=== PATIENT | female | born 1940 | race Caucasian/White ===

== ENCOUNTER 2016-09-12 15:01 | Inpatient (IN) | payer MEDICARE, OTHER ==
--- NOTE | ~2016-09-12 | DS ---
Discharge Summary [facility] [address] [place]. [address] NAME: PRISCILLA CLARK : 39 STATUS : DIS IN PAT#: [id number] AGE: 76 ADM/REG DATE : 09/12/16 MR#: [id number] REPORT SERV DATE: 09/29/16 DICTATED BY: ROZINA CARRILLO DATE: 09/26/16 REPORT STATUS : Draft TRANSCRIBED BY: CHARLIE DATE: 09/26/16 Data Collection from hospitalization DISCHARGE DIAGNOSES: 1. Right acetabular periprosthetic fracture with severe protrusio with severe osteoporosis. 2. Migraines. 3. Cataracts. 4. Astigmatism. 5. Dysrhythmia. 6. Chronic obstructive pulmonary disease. 7. Asthma. 8. Rheumatoid arthritis. 9. Osteoarthritis. 10.Hypothyroidism. 11.Anemia. CONSULTATION: Karyn Yeager NP PROCEDURES: 1. Right acetabular revision/pelvic reconstruction, 09/12/2016. 2. Myocardial perfusion imaging study, 09/16/2016. PATHOLOGY: Bone and tissue, right hip and hardware-organizing hematoma with areas of devitalized bone and areas of reactive new bone formation (history of fracture), dense fibrous connective tissue with granulation tissue, vascular ingrowth fragments of fibroadipose tissue and skeletal muscle present. Orthopedic hardware-see gross description. DISCHARGE MEDICATIONS: ( ) ( ) CONDITION ON DISCHARGE: Stable. DISPOSITION: The patient was discharged to [facility] with diet and activities as instructed. She would follow up with ok, 09/23/2016. HOSPITAL COURSE: This is a 76-year-old female, who has been seen in the clinic for followup status post right uncemented total hip arthroplasty, 08/27/2016. The patient said her pain was a 10 on a scale of 0-10. The patient has severe osteoporosis and had had lumbar fracture subluxation and sacral fracture with failed total ORIF of previous humerus fracture, etc. She had undergone an uncomplicated total hip and was initially doing well. She went to rehab and was determined to be having problems with this, where she suddenly had shortening of her leg. She was brought in for evaluation of multiple complaints and it was determined that she had severe protrusio with a central comminuted fracture and pelvic dissociation. Treatment options were discussed and it was elected to proceed with surgical intervention. She was admitted to the hospital at this time for further evaluation and treatment. Discharge Summary [place] [id number] [facility] [address] NAME: PRISCILLA CLARK : 39 STATUS : DIS IN PAT#: [id number] AGE: 76 ADM/REG DATE : 09/12/16 MR#: [id number] REPORT SERV DATE: 09/29/16 DICTATED BY: ROZINA CARRILLO DATE: 09/26/16 REPORT STATUS : Draft TRANSCRIBED BY: CHARLIE DATE: 09/26/16 Upon admission, she was taken to the operating room, where she underwent the above-mentioned procedure. She tolerated this well and there were no complications. On postop day #1, she was evaluated by Occupational and Physical Therapy. She was up sitting in a bedside chair. She said her hip felt more stable than prior to surgery. REGAN hose were in place. Electrolyte replacement protocol was started. Methotrexate and prednisone were continued as well as atenolol and hydrochlorothiazide. She remained on Synthroid and Asmanex inhaler. On 09/14/2016, she complained of having straight catheterization attempted several times before success. She did complain of the left foot to mid calf numbness, anterior and posterior, left lower extremity. Her REGAN hose remained in place. She denied any shortness of breath or wheezing. She was seen by Karyn Yeager on the 09/15/2016. She began experiencing chest pain with the insertion of a Pierre catheter. This pain was associated with anxiety and some shortness of breath and was relieved with Percocet and Benadryl. She reports feeling pain in the upper right shoulder as well as in her epigastric area. The pain resolved after administration of medication and after completion of Pierre catheter insertion. She does not have any cardiac history other than "leaky valve." She does regularly follow up with Cardiology. Chest x-ray showed no acute process. It was felt that the chest pain was possible anxiety versus atypical chest pain. Troponin was negative. EKG was unremarkable. At this time, we planned to trend troponins and repeat EKG the following morning. Nitroglycerin would be added as needed. Her last bowel movement was greater than two days ago. We were going to increase her bowel regimen. We would encourage fluids and encourage physical activity with physical therapy. The patient has COPD, but is not on home O2. We were going to encourage aggressive pulmonary toilet and provide supportive O2 to maintain saturations greater than or equal to 92. She states she wanted to go home. Her EKG was negative. IV fluids were stopped. Ensure was being provided. On 09/16/2016, she denied any further chest pain. A stress test was performed and showed no ischemia. Left ventricular ejection fraction was 60%. She had no edema. White count was 11.9. Blood pressure remained stable. Over the next couple of days, she continued to do well. Discharge planning was performed. We encouraged her to mobilize with Physical Therapy. Leukocytosis resolved. Her atypical chest pain had resolved as well. 09/18/2016, she continued to do well. White blood cell count was normal. She did have some constipation. Dulcolax suppository and soapsuds enema were given. Discharge instructions were provided. Due to her improved and stable condition, she was discharged to [facility] with the above-stated instructions. Information collected by: Licha Choi I submit the above information as my discharge summary. TG/CHARLIE Indira Carrillo M.D. / [id number] CC: Indira Carrillo M.D. Discharge Summary [address] [address] NAME: PRISCILLA CLARK : 39 STATUS : DIS IN PAT#: [id number] AGE: 76 ADM/REG DATE : 09/12/16 MR#: [id number] REPORT SERV DATE: 09/29/16 DICTATED BY: ROZINA CARRILLO DATE: 09/26/16 REPORT STATUS : Draft TRANSCRIBED BY: MODL DATE: 09/26/16 JUAN AG [facility]
--- NOTE | ~2016-09-12 | CN ---
Consultation Report [facility] [address] [place]. [address] NAME: PRISCILLA CLARK : 39 STATUS : ADM IN [facility]#: [id number] AGE: 76 ADM/REG DATE : 09/12/16 MR#: [id number] REPORT SERV DATE: 09/15/16 DICTATED BY: KARYN YEAGER DATE: 09/15/16 REPORT STATUS : Draft TRANSCRIBED BY: MODL DATE: 09/15/16 HOSPITALIST CONSULTATION DATE OF CONSULTATION: 09/15/2016 REASON FOR CONSULTATION: Chest pain per Dr. Shaw. HISTORY OF PRESENT ILLNESS: This is an awake, alert and oriented, pleasant, 76-year-old female, who was admitted to Dr. Shaw on 09/12/2016 for revision of a right hip arthroplasty that was completed on 09/12/2016. She began experiencing chest pain with the insertion of a Pierre catheter. This pain was associated with anxiety and some shortness of breath and relieved with Percocet and Benadryl. She is currently not experiencing any chest pain, nausea, vomiting, palpitations, dyspnea, shortness of breath, headaches, vision disturbances. She has never had any chest pain of this type before. She reports feeling pain in her upper right shoulder as well as in her epigastric area. Again, this pain was resolved after the administration of medication and after the completion of Pierre insertion. She does not have any cardiac history other than "leaky valves." She does regularly follow with cardiology. PAST MEDICAL HISTORY: Significant for 1. Migraines. 2. Cataracts. 3. Astigmatism. 4. Dysrhythmias. 5. COPD. 6. Asthma. 7. Rheumatoid arthritis. 8. Osteoarthritis. 9. Hypothyroidism. 10.Anemia. PAST SURGICAL HISTORY: Significant for 1. Right hip arthroplasty, 08/27/2016. Revision of right hip arthroplasty, 09/12/2016. 2. Bilateral cataract intra-ocular lens implant, 2016. 3. Tonsillectomy as a child. 4. Appendectomy, age 20. 5. ACL repair. 6. Ankle fracture "several years ago.". 7. Right Achilles tendon repair. 8. Left arm fracture with plates. PCP: Gopal Moreira in [place], [place]. RESEARCH ADMINISTRATOR: Dr. Jeffrey Higginbotham at [facility] in [place] with last appointment 2 weeks ago. Consultation Report [facility] [address] [place]. [address] NAME: PRISCILLA CLARK : 39 STATUS : ADM IN PAT#: [id number] AGE: 76 ADM/REG DATE : 09/12/16 MR#: [id number] REPORT SERV DATE: 09/15/16 DICTATED BY: KARYN YEAGER DATE: 09/15/16 REPORT STATUS : Draft TRANSCRIBED BY: CHARLIE DATE: 09/15/16 HORTICULTURAL SERVICES SUPERVISOR: Dr. Chavez in [place]. THEOLOGY TEACHER: Dr. Bertram Cuevas. He follows for her rheumatoid arthritis. 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 She is a never smoker and denies alcohol and illicit drug use. She has three adult daughters and one adult son as well as 9 grand children. FAMILY HISTORY: Mother has history of hypertension and father has history of diabetes. ALLERGIES: INCLUDE PENICILLINS, CECLOR, ERYTHROMYCIN, SULFA, AND TRIMETHOPRIM. HOME MEDICATIONS: 1. Milk of magnesia 30 mL p.o. daily p.r.n. constipation. 2. Maalox 30 mL p.o. q.3 hours p.r.n. indigestion. 3. Dulcolax 10 mg suppository 1 p.r. daily p.r.n. constipation. 4. Kaopectate 15 to 30 mL p.o. q.4 hours p.r.n. indigestion. 5. Zofran 4 mg p.o. q.4 hours p.r.n. nausea and vomiting. 6. Lactulose 10 g per 15 mL solution 30 mL p.o. daily p.r.n. constipation. 7. MiraLax 1 packet p.o. daily p.r.n. constipation. 8. Phenergan 12.5 to 25 mg p.r. suppository q.6 hours p.r.n. nausea, vomiting. 9. Harrold 7.5/325 one tab p.o. q.4 hours p.r.n. pain. 10.Methotrexate 20 mg p.o. q.7 days on Thursday. 11.Pepcid 20 mg p.o. daily. 12.Vitamin B12 25 mcg sublingual daily. 13.Ferrous sulfate 325 mg p.o. b.i.d. with meals. 14.Vitamin D 2000 units p.o. daily. 15.Tylenol 325 mg 1-2 tabs p.o. q.6 hours p.r.n. pain. 16.Multivitamin one tab p.o. daily. 17.Prednisone 5 mg p.o. daily. 18.Asmanex Twisthaler 220 two puffs inhaled b.i.d. 19.Nystatin 100,000 units/mL oral suspension, 5 mL p.o. 4 times daily. 20.Levothyroxine 75 mcg p.o. q.a.m. 21.Hydrochlorothiazide 12.5 mg p.o. daily. 22.Gabapentin 100 mg 1 p.o. at bedtime. 23.Guaifenesin DM 5-10 mL p.o. q.4 hours p.r.n. cough. 24.Coumadin 2 mg p.o. daily at 1800 hours. 25.Fluticasone 2 sprays each nostril b.i.d. 26.Claritin 10 mg p.o. daily. 27.Atenolol 50 mg p.o. daily. REVIEW OF SYSTEMS: A complete 10-point review of systems was negative except as per HPI. Consultation Report [address] [place]. [address] NAME: PRISCILLA CLARK : 39 STATUS : ADM IN [facility]#: [id number] AGE: 76 ADM/REG DATE : 09/12/16 MR#: [id number] REPORT SERV DATE: 09/15/16 DICTATED BY: KARYN YEAGER DATE: 09/15/16 REPORT STATUS : Draft TRANSCRIBED BY: CHARLIE DATE: 09/15/16 PHYSICAL EXAMINATION: VITAL SIGNS: T 97.3, P 85, R 20, BP 129/81, SpO2 96% on 2 L nasal cannula. GENERAL: Well-appearing female, in no acute distress. NEUROLOGIC: Awake, alert, oriented x3 without focal deficit. HEENT: Normocephalic, atraumatic without lymphadenopathy. NECK: Supple. No JVD. LUNGS: CTA in all lung soliz with normal respiratory effort. CV: Regular rate and rhythm. S1, S2 auscultated without murmur, rub, gallop or click. ABDOMEN: Soft, round, nontender with hypoactive bowel sounds in all quadrants. No masses. EXTREMITIES: No cyanosis. Cap refill within normal limits. Generalized edema in bilateral lower extremities. PSYCH: Anxious affect. SKIN: Clean, dry, and intact with mucous membranes pink and moist. PERTINENT LABS: Troponin was negative at 0.02, drawn at the time of complaint of chest pain. H and H 11.7 and 34.7. Electrolytes all within normal limits. Glucose 109. PERTINENT IMAGING: Chest x-ray on 09/12/2016 per radiology read shows no acute process. Heart normal in size and shape. EKG shows sinus rhythm with PVCs with rate 91. ASSESSMENT AND PLAN: 1. Chest pain. Possible anxiety versus atypical chest pain. Vital signs are currently stable with a negative troponin and EKG unremarkable. At this time, we will plan to trend troponins and repeat EKG in a.m. We will add p.r.n. nitro. Consult Cardiology if clinically warranted. We will also monitor her labs in adding BMP, CBC, and mag to a.m. labs. 2. Constipation. Of note her last bowel movement was greater than 2 days ago. We will increase her bowel regimen. Encourage fluids and encourage physical activity with PT as appropriate with Primary Team. 3. Chronic obstructive pulmonary disease. This is chronic though she is not on home O2. We will encourage aggressive pulmonary toilet and provide supportive O2 to maintain sats greater than or equal to 92. 4. Right hip revision. This is acute and we will defer management of this to the primary team. Thank you for this consult. We are pleased to follow this patient with you. This consult was completed through thorough review of [employer], old records, [facility], and current chart and thorough interview with the patient. [facility]/MODL Karyn Yeager NP Consultation Report [facility] [address] [place]. [address] NAME: PRISCILLA CLARK : 39 STATUS : ADM IN [facility]#: [id number] AGE: 76 ADM/REG DATE : 09/12/16 MR#: [id number] REPORT SERV DATE: 09/15/16 DICTATED BY: KARYN YEAGER DATE: 09/15/16 REPORT STATUS : Draft TRANSCRIBED BY: CHARLIE DATE: 09/15/16 / [id number] CC: Phoebe Banks
--- NOTE | ~2016-09-12 | OP ---
Record Of Operation [facility] [address] [place]. [address] NAME: PRISCILLA CLARK : 39 STATUS : ADM IN PAT#: [id number] AGE: 76 ADM/REG DATE : 09/12/16 MR#: [id number] REPORT SERV DATE: 09/16/16 DICTATED BY: ROZINA SHAW DATE: 09/16/16 REPORT STATUS : Draft TRANSCRIBED BY: CHARLIE DATE: 09/16/16 DATE OF PROCEDURE: 09/12/2016 PREOPERATIVE DIAGNOSIS: Right acetabular periprosthetic fracture with severe protrusio with severe osteoporosis. POSTOPERATIVE DIAGNOSIS: Right acetabular periprosthetic fracture with severe protrusio with severe osteoporosis. PROCEDURE: Right acetabular revision/pelvic reconstructions. CNC APPLICATIONS ENGINEER: See chart. INDICATIONS: A 76-year-old female with severe osteoporosis, who has had lumbar fracture subluxation, sacral fracture, failed ORIF of previous humerus fracture, etc., underwent an uncomplicated total hip, was initially doing well, went to rehab, and was determined to be having problems with this where she suddenly had shortening of her leg. She was brought in for evaluation of multiple complaints and determined to have severe protrusio with a central comminuted fracture and pelvic dissociation. She was indicated for pelvic reconstruction and acetabular revision ORIF. DESCRIPTION OF PROCEDURE: The patient was taken to the operating room and placed supine on the table in normal fashion without incident. General anesthetic was induced per the anesthesiologist. The patient was carefully positioned, padded, prepped, and draped in normal sterile fashion. Sharp dissection was made through the old incision with electrocautery through the fat. IT band was split in line with its fibers. Charnley retractors placed over moist laps. Anterior lateral approach to the hip was carried out lifting the anterior gluteus medius and minimus fibers off the anterior capsule. The acetabular component was severely protruded up into the acetabulum. The femoral head was gently dislocated and removed from the trunnion, went up the femoral component which appeared to be completely intact. Soft tissue dissection was very carefully done in freeing up the acetabular component, which was then gently removed through the acetabular fossa back up from an anterior pelvic location back out. There was no appreciable significant bleeding associated with this portion. There was complete dissociation of the pubis and ischium and the ileum was broken into 2 fragments longitudinally in an anterior and a posterior fragment. After using reamers and packing, a large fragment corticocancellous allograft into the deep aspect, which appeared to be maintained by a pseudo type capsule. I fitted a large multi hole cup. This required augmentation with a posterior column augment from the DePuy set. The multi hole socket was placed and held with multiple screws were placed. The augment was then placed similarly and held with multiple screws and a small bead of cement used to join this augment to the posterior superior aspect of the acetabular component. This appeared to have excellent fixation. After doing a trial of reduction superior to recreate the leg length well and so the actual insert was then placed, impacted into the new socket, ball placed in the trunnion, hip relocated, and then irrigated closed in a layered fashion and dressed sterilely. Patient awakened and taken to postanesthesia care unit without incident. Record Of Operation [address] [place]. [address] NAME: PRISCILLA CLARK : 39 STATUS : ADM IN PAT#: [id number] AGE: 76 ADM/REG DATE : 09/12/16 MR#: [id number] REPORT SERV DATE: 09/16/16 DICTATED BY: ROZINA SHAW DATE: 09/16/16 REPORT STATUS : Draft TRANSCRIBED BY: CHARLIE DATE: 09/16/16 COMPLICATIONS: None. SPECIMENS: Removed components. ESTIMATED BLOOD LOSS: About 300 mL. WTB/CHARLIE Indira Shaw M.D. / [id number] CC: Indira Shaw M.D.
[~2016-09-12 15:01] MED LIST: 8 HOUR650 MG PO; ASMANEX100 INH; ATEN50 PO; CLARIT10 PO; CYANO1000T PO; FLONASE NAS; FOLIC PO; HCTZ12.5 PO; MTX2.5 PO; P5 PO; SLO IRON PO; SYN.025B PO; VITAMIN D31000 UNIT PO
[2016-09-12] MEDS ORDERED: VITAMIN D2000 UNIT PO (17:57)
[2016-09-12] MEDS ORDERED: VITAMIN B-122500 MCG SL (17:57)
[2016-09-12] MEDS ORDERED: ATEN50 PO (17:57)
[2016-09-12] MEDS ORDERED: PEP20 PO (17:58)
[2016-09-12] MEDS ORDERED: FERROUS SULF325 M1 PO (17:58)
[2016-09-12] MEDS ORDERED: FLONASE NAS (17:58)
[2016-09-12] MEDS ORDERED: GLYCERIN SUPPOSITORY PR (17:59)
[2016-09-12] MEDS ORDERED: FOLIC PO (17:59)
[2016-09-12] MEDS ORDERED: HYDROCHLOROT25 MG PO (18:00)
[2016-09-12] MEDS ORDERED: LEVOTHYROXIN75 MCG PO (18:00)
[2016-09-12] MEDS ORDERED: CENTRUM PO (18:00)
[2016-09-12] MEDS ORDERED: ASMANEX INH (18:00)
[2016-09-12] MEDS ORDERED: NYS500UDL PO (18:01)
[2016-09-12] MEDS ORDERED: P5 PO (18:01)
[2016-09-12] MEDS ORDERED: C2 PO (18:02)
[2016-09-12] MEDS ORDERED: T PO (18:04)
[2016-09-12] MEDS ORDERED: MAALOX PO (18:05)
[2016-09-12] MEDS ORDERED: BISR PR (18:05)
[2016-09-12] MEDS ORDERED: KAOPECTATE262 MG/15 PO (18:06)
[2016-09-12] MEDS ORDERED: GGDM5ML PO (18:06)
[2016-09-12] MEDS ORDERED: NORCO1 TA2 PO (18:07)
[2016-09-12] MEDS ORDERED: CONSTULOSE PO (18:07)
[2016-09-12] MEDS ORDERED: CLARIT10 PO (18:07)
[2016-09-12] MEDS ORDERED: ZOFRAN ODT4 MG PO (18:08)
[2016-09-12] MEDS ORDERED: MOMUD PO (18:08)
[2016-09-12] MEDS ORDERED: MIRALAX POWDER1 PKT PO (18:08)
[2016-09-12] MEDS ORDERED: PR25R PR (18:10)
[2016-09-12 18:21] LABS: BASOPHILS 0.4 %; BASOPHILS ABSOLUTE 0.04 10/3/uL (0.0-0.16); EOSINOPHILS 0.4 %; EOSINOPHILS ABSOLUTE 0.04 10/3/uL (0.0-0.53); HEMOGLOBIN 9.9 g/dL (12.0-16.0); IMMATURE GRANULOCYTES 0.7 %; IMMATURE GRANULOCYTES ABSOLUTE 0.08 10/3/uL (0.0-0.11); LYMPHOCYTES 16.5 %; LYMPHOCYTES ABSOLUTE 1.81 10/3/uL (0.67-4.30); MEAN PLATELET VOLUME 8.3 fL (9.2-13.0); MONOCYTES 14.7 %; MONOCYTES ABSOLUTE 1.61 10/3/uL (0.21-1.20); NEUTROPHILS 67.3 %; NEUTROPHILS ABSOLUTE 7.36 10/3/uL (2.02-8.40); RBC DISTRIBUTION WIDTH 15.9 % (12.0-16.0); RED CELL COUNT 3.41 10/6/uL (4.0-5.6); WHITE BLOOD CELLS 10.9 10/3/uL (4.5-10.5)
[2016-09-12 18:23] LABS: HEMATOCRIT 30.9 % (36.0-48.0); MEAN CORPUSCULAR VOLUME 90.6 fL (80-100)
[2016-09-12 18:24] LABS: MANUAL DIFF NO %
[2016-09-12 18:29] LABS: INTERNATIONAL NORMAL RATI 2.1 UNITS (-); PROTIME (NOT ORD) 23.4 SEC (12.0-14.5)
[2016-09-12] MEDS ORDERED: TREXALL10 MG PO (18:37)
[2016-09-12 18:39] LABS: RBC MORPHOLOGY NORM (NORMAL)
[2016-09-12 18:40] LABS: A/G RATIO 0.7 (0.7-1.9); ALBUMIN 2.6 G/DL (3.5-5.0); ALKALINE PHOSPHATASE 273 U/L (45-117); BUN (BLOOD UREA NITROGEN) 44 MG/DL (6-23); CALCIUM, SERUM 8.6 MG/DL (8.5-10.4); CHLORIDE, SERUM 89 MMOL/L (96-112); CO2 (CARBON DIOXIDE) 32 MMOL/L (24-34); CREATININE 1.02 MG/DL (0.55-1.02); GFR AFRICAN AMERICAN 61 ML/MIN (>=60); GFR NON AFRICAN AMERICAN 53 ML/MIN (>=60); GLOBULIN 3.9 G/DL (2.5-4.1); GLUCOSE, SERUM 130 MG/DL (60-99); POTASSIUM, SERUM 3.5 MMOL/L (3.5-5.3); SGOT(AST) 22 U/L (5-40); SGPT(ALT) 19 U/L (5-65); SODIUM, SERUM 134 MMOL/L (135-148); TOTAL BILIRUBIN 0.5 MG/DL (0-1.2); TOTAL PROTEIN 6.5 G/DL (6.0-8.5)
[2016-09-12 18:42] LABS: PLATELET COUNT 967 10/3/uL (150-400)
[2016-09-13 08:55] LABS: HEMATOCRIT 31.7 % (36.0-48.0); HEMOGLOBIN 10.8 g/dL (12.0-16.0)
[2016-09-13 09:03] LABS: INTERNATIONAL NORMAL RATI 2.4 UNITS (-); PROTIME (NOT ORD) 26.1 SEC (12.0-14.5)
[2016-09-13 09:17] LABS: BUN (BLOOD UREA NITROGEN) 34 MG/DL (6-23); CALCIUM, SERUM 7.8 MG/DL (8.5-10.4); CHLORIDE, SERUM 97 MMOL/L (96-112); CO2 (CARBON DIOXIDE) 28 MMOL/L (24-34); GFR AFRICAN AMERICAN 82 ML/MIN (>=60); GFR NON AFRICAN AMERICAN 71 ML/MIN (>=60); GLUCOSE, SERUM 119 MG/DL (60-99); POTASSIUM, SERUM 3.1 MMOL/L (3.5-5.3); SODIUM, SERUM 135 MMOL/L (135-148)
[2016-09-14 07:44] LABS: HEMATOCRIT 30.7 % (36.0-48.0); HEMOGLOBIN 10.1 g/dL (12.0-16.0)
[2016-09-14 07:49] LABS: INTERNATIONAL NORMAL RATI 3.3 UNITS (-); PROTIME (NOT ORD) 33.4 SEC (12.0-14.5)
[2016-09-14 07:55] LABS: BUN (BLOOD UREA NITROGEN) 19 MG/DL (6-23); CALCIUM, SERUM 8.6 MG/DL (8.5-10.4); CHLORIDE, SERUM 98 MMOL/L (96-112); CO2 (CARBON DIOXIDE) 29 MMOL/L (24-34); CREATININE 0.68 MG/DL (0.55-1.02); GFR AFRICAN AMERICAN 98 ML/MIN (>=60); GFR NON AFRICAN AMERICAN 84 ML/MIN (>=60); GLUCOSE, SERUM 98 MG/DL (60-99); POTASSIUM, SERUM 3.4 MMOL/L (3.5-5.3); SODIUM, SERUM 138 MMOL/L (135-148)
[2016-09-15 01:36] LABS: HEMOGLOBIN 11.7 g/dL (12.0-16.0)
[2016-09-15 01:38] LABS: HEMATOCRIT 34.7 % (36.0-48.0)
[2016-09-15 01:42] LABS: INTERNATIONAL NORMAL RATI 3.4 UNITS (-)
[2016-09-15 01:53] LABS: BUN (BLOOD UREA NITROGEN) 18 MG/DL (6-23); CHLORIDE, SERUM 99 MMOL/L (96-112); CO2 (CARBON DIOXIDE) 29 MMOL/L (24-34); CREATININE 0.71 MG/DL (0.55-1.02); GFR AFRICAN AMERICAN 95 ML/MIN (>=60); GFR NON AFRICAN AMERICAN 82 ML/MIN (>=60); GLUCOSE, SERUM 109 MG/DL (60-99); POTASSIUM, SERUM 3.1 MMOL/L (3.5-5.3); SODIUM, SERUM 140 MMOL/L (135-148); TROPONIN I 0.02 NG/ML (<0.05)
[2016-09-15 06:52] LABS: HEMATOCRIT 32.5 % (36.0-48.0); HEMOGLOBIN 10.8 g/dL (12.0-16.0); MEAN CORPUS HGB CONC 33.2 g/dL (32.0-36.0); MEAN CORPUSCULAR HEMOGLOB 29.8 pg (26.0-34.0); MEAN CORPUSCULAR VOLUME 89.8 fL (80-100); MEAN PLATELET VOLUME 8.3 fL (9.2-13.0); RBC DISTRIBUTION WIDTH 15.8 % (12.0-16.0); RED CELL COUNT 3.62 10/6/uL (4.0-5.6)
[2016-09-15 06:55] LABS: MANUAL DIFF YES %; PLATELET COUNT 217 10/3/uL (150-400); WHITE BLOOD CELLS 15.8 10/3/uL (4.5-10.5)
[2016-09-15 07:10] LABS: CHLORIDE, SERUM 99 MMOL/L (96-112); CO2 (CARBON DIOXIDE) 29 MMOL/L (24-34); CREATININE 0.93 MG/DL (0.55-1.02); GFR AFRICAN AMERICAN 69 ML/MIN (>=60); GFR NON AFRICAN AMERICAN 59 ML/MIN (>=60); SODIUM, SERUM 138 MMOL/L (135-148)
[2016-09-15 07:13] LABS: BAND NEUTROPHILS 26 %; IMMATURE GRANS ABSOLUTE (CALC) 0.16 10/3/uL (0.0-0.11); LYMPHOCYTES 3 %; LYMPHOCYTES ABSOLUTE (CALC) 0.47 10/3/uL (0.67-4.30); METAMYELOCYTES 1 %; NEUTROPHILS ABSOLUTE (CALC) 15.17 10/3/uL (2.02-8.40); PLATELET ESTIMATE ADQ (ADEQUATE); SEGMENTED NEUTROPHIL (0) 70 %; TOTAL NUCLEATED CELLS 100; TOXIC GRANULATION 2+; VACUOLATED NEUTROPHILES OCC
[2016-09-15 07:14] LABS: BUN (BLOOD UREA NITROGEN) 22 MG/DL (6-23); GLUCOSE, SERUM 82 MG/DL (60-99)
[2016-09-15 07:15] LABS: TROPONIN I 0.06 NG/ML (<0.05)
[2016-09-15 07:16] LABS: POLYCHROMASIA 1+ (2-5/OIF) (0-1/OIF)
[2016-09-15 13:25] LABS: TROPONIN I 0.02 NG/ML (<0.05)
[2016-09-15 14:25] LABS: ASCORBIC ACID (UR NOT ORDER) NEG (NEG); BILIRUBIN, URINE NEGATIVE (NEG); KETONE, URINE NEGATIVE (NEG); WBC (NOT ORDERED) (RFLEX) 19 (0-5)
[2016-09-15 14:26] LABS: LEUKOCYTE ESTERASE(NOT OR TRACE (NEG)
[2016-09-16 07:05] LABS: BASOPHILS 0.1 %; BASOPHILS ABSOLUTE 0.01 10/3/uL (0.0-0.16); EOSINOPHILS 1.9 %; EOSINOPHILS ABSOLUTE 0.23 10/3/uL (0.0-0.53); HEMATOCRIT 29.3 % (36.0-48.0); HEMOGLOBIN 9.6 g/dL (12.0-16.0); IMMATURE GRANULOCYTES 0.4 %; IMMATURE GRANULOCYTES ABSOLUTE 0.05 10/3/uL (0.0-0.11); LYMPHOCYTES 15.1 %; MEAN CORPUS HGB CONC 32.8 g/dL (32.0-36.0); MEAN CORPUSCULAR HEMOGLOB 29.5 pg (26.0-34.0); MEAN CORPUSCULAR VOLUME 90.2 fL (80-100); MEAN PLATELET VOLUME 8.8 fL (9.2-13.0); MONOCYTES 3.3 %; MONOCYTES ABSOLUTE 0.39 10/3/uL (0.21-1.20); NEUTROPHILS 79.2 %; NEUTROPHILS ABSOLUTE 9.45 10/3/uL (2.02-8.40); PLATELET COUNT 196 10/3/uL (150-400); RBC DISTRIBUTION WIDTH 15.5 % (12.0-16.0); RED CELL COUNT 3.25 10/6/uL (4.0-5.6); WHITE BLOOD CELLS 11.9 10/3/uL (4.5-10.5)
[2016-09-16 07:06] LABS: MANUAL DIFF NO %
[2016-09-16 07:13] LABS: PROTIME (NOT ORD) 30.5 SEC (12.0-14.5)
[2016-09-16 07:25] LABS: BUN (BLOOD UREA NITROGEN) 20 MG/DL (6-23); CALCIUM, SERUM 9.2 MG/DL (8.5-10.4); CHLORIDE, SERUM 99 MMOL/L (96-112); CO2 (CARBON DIOXIDE) 30 MMOL/L (24-34); CREATININE 0.54 MG/DL (0.55-1.02); GFR AFRICAN AMERICAN 105 ML/MIN (>=60); GFR NON AFRICAN AMERICAN 91 ML/MIN (>=60); GLUCOSE, SERUM 102 MG/DL (60-99); POTASSIUM, SERUM 3.6 MMOL/L (3.5-5.3); SODIUM, SERUM 139 MMOL/L (135-148)
[2016-09-17 05:46] LABS: BASOPHILS 0.4 %; BASOPHILS ABSOLUTE 0.03 10/3/uL (0.0-0.16); EOSINOPHILS 2.9 %; EOSINOPHILS ABSOLUTE 0.24 10/3/uL (0.0-0.53); HEMATOCRIT 29.5 % (36.0-48.0); HEMOGLOBIN 9.7 g/dL (12.0-16.0); IMMATURE GRANULOCYTES 0.6 %; IMMATURE GRANULOCYTES ABSOLUTE 0.05 10/3/uL (0.0-0.11); LYMPHOCYTES 22.4 %; LYMPHOCYTES ABSOLUTE 1.89 10/3/uL (0.67-4.30); MEAN CORPUS HGB CONC 32.9 g/dL (32.0-36.0); MEAN CORPUSCULAR HEMOGLOB 29.3 pg (26.0-34.0); MEAN CORPUSCULAR VOLUME 89.1 fL (80-100); MEAN PLATELET VOLUME 8.7 fL (9.2-13.0); MONOCYTES 6.1 %; MONOCYTES ABSOLUTE 0.51 10/3/uL (0.21-1.20); NEUTROPHILS 67.6 %; PLATELET COUNT 207 10/3/uL (150-400); RED CELL COUNT 3.31 10/6/uL (4.0-5.6); WHITE BLOOD CELLS 8.4 10/3/uL (4.5-10.5)
[2016-09-17 05:49] LABS: MANUAL DIFF NO %
[2016-09-17 05:56] LABS: BUN (BLOOD UREA NITROGEN) 18 MG/DL (6-23); CALCIUM, SERUM 9.1 MG/DL (8.5-10.4); CHLORIDE, SERUM 99 MMOL/L (96-112); CO2 (CARBON DIOXIDE) 33 MMOL/L (24-34); CREATININE 0.58 MG/DL (0.55-1.02); GFR AFRICAN AMERICAN 103 ML/MIN (>=60); GFR NON AFRICAN AMERICAN 89 ML/MIN (>=60); GLUCOSE, SERUM 98 MG/DL (60-99); POTASSIUM, SERUM 3.5 MMOL/L (3.5-5.3); SODIUM, SERUM 139 MMOL/L (135-148)
[2016-09-17 07:58] LABS: INTERNATIONAL NORMAL RATI 2.1 UNITS (-); PROTIME (NOT ORD) 23.6 SEC (12.0-14.5)
[2016-09-18 06:47] LABS: INTERNATIONAL NORMAL RATI 2.2 UNITS (-)
== END 2016-09-18 16:26 | DRG 467 ==
LOC: 1SO 15:01
PROVIDERS: Nurse Practitioner; Nurse Practitioner Family; Physician Assistant; Specialist
PROC: 30233N1 Transfusion of Nonautologous Red Blood Cells into Peripheral Vein, Percutaneous Approach (ICD-10-PCS; 2016-09-12)
PROC: 0SP909Z Removal of Liner from Right Hip Joint, Open Approach (ICD-10-PCS; principal; 2016-09-16)
PROC: 0SUA09Z Supplement Right Hip Joint, Acetabular Surface with Liner, Open Approach (ICD-10-PCS; 2016-09-16)
PROC: 0SR Lower Joints, Replacement (ICD-10-PCS; 2016-09-16)
PROC: 0SPA0JZ Removal of Synthetic Substitute from Right Hip Joint, Acetabular Surface, Open Approach (ICD-10-PCS; 2016-09-16)
DX: M97.01XA Periprosthetic fracture around internal prosthetic right hip joint, initial encounter (principal); D68.32 Hemorrhagic disorder due to extrinsic circulating anticoagulants; D62 Acute posthemorrhagic anemia; J44.9 Chronic obstructive pulmonary disease, unspecified; E87.6 Hypokalemia; T45.515A Adverse effect of anticoagulants, initial encounter; I10 Essential (primary) hypertension; K59.00 Constipation, unspecified; D72.829 Elevated white blood cell count, unspecified; K21.9 Gastro-esophageal reflux disease without esophagitis; M06.9 Rheumatoid arthritis, unspecified; Y83.8 Other surgical procedures as the cause of abnormal reaction of the patient, or of later complication, without mention of misadventure at the time of the procedure; J45.909 Unspecified asthma, uncomplicated; L89.619 Pressure ulcer of right heel, unspecified stage; E03.9 Hypothyroidism, unspecified; Z79.01 Long term (current) use of anticoagulants; Z79.899 Other long term (current) drug therapy; Z88.0 Allergy status to penicillin; Z88.1 Allergy status to other antibiotic agents; Z88.2 Allergy status to sulfonamides; Z88.8 Allergy status to other drugs, medicaments and biological substances
CPT/HCPCS: 36415; 71010; 72170; 78452; 80048; 80053; 81001; 83735; 84132; 84484; 85014; 85018; 85025; 85610; 86850; 86900; 86901; 86920; 88300; 88304; 88311; 93005; 93017; 97110-GO; 97110-GP; 97163-GP; 97166-GO; 97530-GP; 97535-GO; A9270-GY; A9502; C1713; C1776; G8978-CL-GP; G8979-CK-GP; G8987-CN-GO; G8988-CM-GO; J0153; J1580; J1644; J1720; J1885; J2270; J2274; J2370; J2405; J2710; J2795; J3010; J3260; J3370; J8610; P9016

== ENCOUNTER 2016-10-09 18:08 | Inpatient (IN) | payer MEDICARE, OTHER ==
--- NOTE | ~2016-10-09 | DS ---
Discharge Summary [facility] [address] [place]. [address] NAME: PRISCILLA CLARK : 39 STATUS : DIS IN PAT#: [id number] AGE: 76 ADM/REG DATE : 10/09/16 MR#: [id number] REPORT SERV DATE: 10/24/16 DICTATED BY: JOHN ZAPATA DATE: 10/23/16 REPORT STATUS : Draft TRANSCRIBED BY: CHARLIE DATE: 10/23/16 Data Collection from hospitalization DISCHARGE DIAGNOSIS(ES): 1. Severe osteoporosis. 2. Sacral fracture with improved neurologic findings. 3. Hypertension. 4. Hypothyroidism. 5. Osteoarthritis. 6. Rheumatoid arthritis. 7. Gastroesophageal reflux disease. 8. Asthma. 9. Chronic obstructive pulmonary disease. 10.Migraines. 11.Anemia. 12.Nephrolithiasis. 13.History of paroxysmal supraventricular tachycardia. CONSULTATIONS: Shannan Yanez NP; Staci Mata [facility]-; and Ronak Greenfield M.D. PROCEDURES PERFORMED: 1. CT scan of the pelvis without contrast, 10/10/2016. 2. MRI of the thoracic spine with and without contrast, 10/10/2016. 3. MRI of the lumbar spine with and without contrast, 10/10/2016. MEDICATIONS: ( ) ( ) CONDITION AT DISCHARGE: Stable. DISPOSITION: The patient was discharged to [facility] on a regular diet with activities as instructed. She would follow up with my physician's therapist's assistant, Jayda, in the [place] office in two months following discharge. HOSPITAL COURSE: This is a 76-year-old female who presented with the chief complaint of sacral and pelvic paresthesias, loss of bowel and bladder control. The patient has had multiple reconstructive surgeries including right total hip arthroplasty, revision right hip arthroplasty with pelvic reconstruction. She also has had multiple pelvic fractures including chest tube displaced fracture and sacral canal stenosis and compromise. She had had about a four-week history of bowel and bladder incontinence. The patient has rheumatoid arthritis and severe osteoporosis due to steroid use as well as osteoarthritis. The right hip incision appeared to be healing. She moves the right knee and ankle quite well. She moves the left hip, knee, and ankle well. She did not seem to have a lot of pain with movement. She had good pulses in all four extremities. She was admitted to the hospital at this time for further evaluation and treatment. Upon admission, it was felt that she should be switched from Coumadin to Lovenox. She was seen by Shannan Yanez regarding medical management. The patient has a history of paroxysmal Discharge Summary [place] [id number] [address] NAME: PRISCILLA CLARK : 39 STATUS : DIS IN PAT#: [id number] AGE: 76 ADM/REG DATE : 10/09/16 MR#: [id number] REPORT SERV DATE: 10/24/16 DICTATED BY: JOHN ZAPATA DATE: 10/23/16 REPORT STATUS : Draft TRANSCRIBED BY: CHARLIE DATE: 10/23/16 supraventricular tachycardia and dysrhythmia. She was going to be continued on her Tenormin as well as her hydrochlorothiazide. She was placed on telemetry. She does use inhalers at home. Asmanex was continued. We were going to add albuterol nebulizers as needed. Prednisone and methotrexate were continued as well as Synthroid. Flonase and Claritin were continued as well. We were going to continue her Pepcid daily. She has excoriation of the right buttock and also a right heel wound. We would keep her heels off the bed. On the following day, she was seen by Staci Mata regarding sacral paresthesia, loss of bowel and bladder function. The patient was felt to have probable cauda equina syndrome. MRI of the thoracic spine and lumbar spine would be performed with and without contrast. She was started on IV Decadron. CT scan of the pelvis without contrast was performed as well as an MRI of the thoracic spine with and without contrast and MRI of the lumbar spine with and without contrast. The patient was also seen by Dr. Ronak Greenfield regarding bowel incontinence. The patient had reported bowel and bladder incontinence since her second surgery. She has about a four-week history of bowel and bladder incontinence with some concern for recovery. Symptomatology was felt consistent with cauda equina syndrome. She was evaluated by Physical Therapy on 10/11/2016. Her T-max was 98.3. Decadron was discontinued. She was placed on bed rest. It was felt that she would need to be on bed rest for about two months. The patient seemed discouraged by this. We encouraged her to use incentive spirometry. On 10/12/2016, her leg restlessness had improved. The patient was felt to have cauda equina syndrome. She continued to complain of some low sacral pain. Straight catheterization continued. Occupational Therapy evaluated the patient. On exam, there were no new right hip complaints. Repeat x-ray showed no displacement and showed good alignment. DVT prophylaxis would be continued over the next couple of days. She remained stable. She denied any new complaints. She was having bowel movements. Discharge planning was performed on 10/15/2016. Discharge instructions were given. Due to her improved and stable condition, she was discharged to [facility] with the above-stated instructions. Information collected by: Licha Choi I submit the above information as my discharge summary. GEORGINA/CHARLIE John Zapata D.O. / [id number] CC: Gay York M.D. [facility]
--- NOTE | ~2016-10-09 | CN ---
Consultation Report [facility] [address] [place]. [address] NAME: PRISCILLA CLARK : 39 STATUS : DIS IN PAT#: [id number] AGE: 76 ADM/REG DATE : 10/09/16 MR#: [id number] REPORT SERV DATE: 11/01/16 DICTATED BY: RONAK GREENFIELD DATE: 10/31/16 REPORT STATUS : Draft TRANSCRIBED BY: MODL DATE: 10/31/16 INPATIENT CONSULTATION. DATE OF CONSULTATION: 10/10/2016 DICTATED BY: Arleth Platt, Nurse Practitioner dictating for Ronak Greenfield M.D. REASON FOR CONSULTATION: Bowel incontinence. HISTORY OF PRESENT ILLNESS: This 76-year-old, female was admitted following right total hip arthroplasty on 08/27/2016 that was uneventful. She was transferred to [facility] on 09/10/2016. Due to pain, she had CT scan at [place] revealing pelvic fractures and protrusion of previous surgery. She was readmitted to [facility] on 09/16/2016 for revision of the right hip with pelvic reconstruction by Dr. Shaw. The patient reports bowel and bladder incontinence since her second surgery. Initially, she had a Pierre but no control of bladder function after Pierre was discontinued. She has saddle paresthesia. Prior to surgery, she had a formed BM daily to every other day. Since revision surgery, she has had fecal incontinence with pasty stool without sensory awareness. She is currently on Colace b.i.d., MiraLAX 1 packet daily, Senokot two tabs at bedtime, and Dulcolax p.r.n. She reports no bowel function four days until today. She had an outpatient MRI on 10/09/2016 revealing fracture of S2 with displacement and sacral canal very diminished with significant nerve impingement. She has had neurological evaluation as above. She has not had prior EGD or colonoscopy. She reports remote history of Zantac use. She has mild nausea with no vomiting in the last six to eight weeks. PAST MEDICAL HISTORY: 1. Osteoarthritis. 2. Rheumatoid arthritis. 3. Osteoporosis. 4. Hypertension. 5. Seasonal allergies. 6. Asthma. 7. GERD. 8. Hypothyroidism. 9. COPD. 10.Migraine headaches. 11.Paroxysmal supraventricular tachycardia. 12.Nephrolithiasis. 13.Constipation. 14.Anemia. PAST SURGICAL HISTORY: Status post right total hip arthroplasty 08/27/2016, revision of right hip and pelvic reconstruction 09/16/2016, tonsillectomy and adenoidectomy, appendectomy, ACL repair, ORIF of ankle fracture, cataract surgery, right Achilles tendon Consultation Report [facility] [id number] [place]. [address] NAME: PRISCILLA CLARK : 39 STATUS : DIS IN PAT#: [id number] AGE: 76 ADM/REG DATE : 10/09/16 MR#: [id number] REPORT SERV DATE: 11/01/16 DICTATED BY: RONAK GREENFIEDL DATE: 10/31/16 REPORT STATUS : Draft TRANSCRIBED BY: CHARLIE DATE: 10/31/16 repair, and left arm fracture with repair. ALLERGIES: PENICILLIN, CECLOR, ERYTHROMYCIN, SULFA, AND BACTRIM. HOME MEDICATIONS: Tenormin, vitamin D, vitamin B12, Pepcid 20 mg daily, Dulcolax 10 mg as needed, Colace 100 mg twice daily, MiraLAX 17 g daily, Senokot 1 tablet as needed, Flonase, folic acid, HydroDIURIL, Synthroid, Claritin, melatonin, Duragesic, Trexall, Tylenol p.r.n., Asmanex, multivitamin, Mycostatin, Zofran p.r.n., potassium chloride, prednisone, Ultram, and Coumadin. 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 She has four children. She denies use of tobacco, alcohol, or illicit drug use. FAMILY HISTORY: No GI malignancies. REVIEW OF SYSTEMS: Otherwise unremarkable for constitutional, endocrine, neurologic, psychiatric, ocular, ENT, pulmonary, cardiovascular, GI, , or rheumatologic symptoms except for as noted above. PHYSICAL EXAMINATION: VITAL SIGNS: Afebrile, pulse 83, respirations 18, BP 120/68, O2 saturation 93% on room air. GENERAL: Alert and oriented x3. No acute distress. HEENT: Grossly within normal limits. CHEST: Clear to auscultation bilaterally. CARDIOVASCULAR: Regular rate and rhythm without murmur noted. ABDOMEN: Soft, mildly distended, hyperactive bowel sounds, nontender, no masses or hepatosplenomegaly noted. EXTREMITIES: Without edema. Decreased sensation in the left lower extremity below the knee. LABORATORY DATA: WBC 7.2, hemoglobin low at 10.0, INR 2.6, potassium 3.4, BUN 14, creatinine 0.56, albumin is low at 2.4, alkaline phosphatase high at 156, TSH is normal. IMPRESSION: 1. Approximately a 4-week history of bowel and bladder incontinence following a right total hip arthroplasty and revision with pelvic reconstruction. 2. Multiple pelvic fractures with S2 displacement and sacral canal stenosis and compromise. PLAN: There is nothing currently to suggest GI pathologies specifically. Symptomatology is most consistent with cauda equina syndrome. The patient is scheduled for repeat MRI and IV Decadron. Possible decompression is planned. We will be available as needed. /MODL Consultation Report [address] [place]. [address] NAME: PRISCILLA CLARK : 39 STATUS : DIS IN PAT#: [id number] AGE: 76 ADM/REG DATE : 10/09/16 MR#: [id number] REPORT SERV DATE: 11/01/16 DICTATED BY: RONAK GREENFIELD DATE: 10/31/16 REPORT STATUS : Draft TRANSCRIBED BY: CHARLIE DATE: 10/31/16 Ronak Greenfield M.D. / [id number] CC: Gay York M.D.
--- NOTE | ~2016-10-09 | CN ---
Consultation Report [facility] [address] [place]. [address] NAME: PRISCILLA CLARK : 39 STATUS : ADM IN PAT#: [id number] AGE: 76 ADM/REG DATE : 10/09/16 MR#: [id number] REPORT SERV DATE: 10/10/16 DICTATED BY: SHANNAN MONAHAN DATE: 10/09/16 REPORT STATUS : Draft TRANSCRIBED BY: MODL DATE: 10/09/16 CONSULTATION NOTE DATE OF CONSULTATION: 10/09/2016 REASON FOR CONSULTATION: Consulted for medical management. IDENTIFYING DATA: 1. PCP is Gopal Moreira. 2. Mobile Electronics Installer, Jeffrey Higginbotham M.D. in [place]. Both PCP and cardiology are in [place], [place]. 3. Aluminum Can Collector Dr. Rojas. 4. Manufacturing Engineering Manager, Bertram Cuevas M.D. 5. Orthopedist, Jesus Shaw M.D. and also seen orthopedic hinojosa by Dr. John Chaves. HISTORY OF PRESENT ILLNESS: This is a pleasant 76-year-old old female with a history of dysrhythmias, COPD, asthma, rheumatoid arthritis, hypothyroidism, right hip degenerative joint disease, and questionable she states a history of "leaking valve" as well as a history of hypertension, PSVT, and GERD. This is a patient of Dr. Jesus Shaw who is being seen by Dr. John Chaves presently on admission. The patient underwent a right total hip arthroplasty on 08/27/2016 which was an uneventful surgery. She had a revision on 09/12/2016. The family states the patient underwent rehabilitation post surgery at [facility] and then was transferred and resided at [facility] postoperatively. The patient started complaining of significant pain with left lower extremity tingling, was noted to be incontinent of bowel and bladder. The patient ultimately was transferred to have a CT scan and MR of the left spine without contrast which displayed a bilateral sacral fractures with left fracture displaced 9 mm, second sacral segment was displaced 15 mm and showed severe compression and stenosis of the spinal canal at S2 level. She is presently admitted for planned surgery of L5-S1 microdiskectomy with neuro-physiology monitoring. Dr. John Chaves has seen her this evening, and please see his admission H and P. The hospitalist group has been consulted to help with medical management. The patient's history was obtained through interview with the patient, her daughters, review of H and P by Dr. Chaves, and call center support consultant notes, and old medical records. PAST MEDICAL HISTORY: 1. Migraines. 2. Cataracts. 3. Astigmatism. 4. Dysrhythmias. 5. COPD. 6. Asthma. 7. Rheumatoid arthritis. 8. Osteoarthritis. Consultation Report [address] [place]. [address] NAME: PRISCILLA CLARK : 39 STATUS : ADM IN PAT#: [id number] AGE: 76 ADM/REG DATE : 10/09/16 MR#: [id number] REPORT SERV DATE: 10/10/16 DICTATED BY: SHANNAN MONAHAN DATE: 10/09/16 REPORT STATUS : Draft TRANSCRIBED BY: CHARLIE DATE: 10/09/16 9. Hypothyroidism. 10.Anemia. 11.Right hip degenerative joint disease. 12.Chest pain. 13.Bronchitis. 14.Rheumatic fever at 9 years of age for which the patient states she has "leaking valve.". 15.Hypertension. 16.PSVT. 17.GERD. 18.Previous pneumonia. 19.Renal calculi. HOME MEDICATIONS: 1. Tylenol 650 mg p.o. every eight hours p.r.n. pain. 2. Tenormin 50 mg p.o. every morning. 3. Dulcolax 10 mg suppository P.R. daily p.r.n. constipation. 4. Dulcolax 10 mg p.o. tablet daily p.r.n. constipation. 5. Vitamin D 2000 units p.o. every morning. 6. Vitamin B12 2000 mcg p.o. every morning. 7. Colace 100 mg p.o. twice a day. 8. Pepcid 20 mg p.o. every morning. 9. Ferrous sulfate 325 mg p.o. twice a day. 10.Flonase nasal spray 50 mcg two sprays nasally twice a day to both nostrils. 11.Folic acid 800 mcg p.o. every morning. 12.Hydrochlorothiazide 12.5 mg p.o. every morning. 13.Synthroid 75 mcg p.o. daily. 14.Claritin 10 mg p.o. daily p.r.n. allergies. 15.Melatonin 5 mg p.o. at bedtime for insomnia. 16.Thera-Gesic cream 1 application topically every eight hours p.r.n. for pain. 17.Methotrexate 20 mg p.o. every seven days on Saturdays. 18.Asmanex Twisthaler 220 mcg two puffs inhalation twice a day. 19.Multivitamin with minerals one tablet p.o. every morning. 20.Nystatin 5 mL p.o. twice a day. 21.Zofran ODT 4 mg p.o. or sublingual every four hours p.r.n. nausea. 22.MiraLAX 17 g one packet p.o. every morning for constipation. 23.Potassium chloride 10 mEq p.o. every morning. 24.Prednisone 5 mg p.o. every morning which is maintenance therapy for patient's rheumatoid arthritis. 25.Senokot 17.2 mg p.o. at bedtime. 26.Ultram 50 mg p.o. twice a day. 27.Calazime skin cream 1 application topically daily to coccyx daily for skin protection. 28.Coumadin 3 mg p.o. daily at 1600 hours. ALLERGIES: Consultation Report [address] [place]. [address] NAME: PRISCILLA CLARK : 39 STATUS : ADM IN [facility]#: [id number] AGE: 76 ADM/REG DATE : 10/09/16 MR#: [id number] REPORT SERV DATE: 10/10/16 DICTATED BY: SHANNAN MONAHAN DATE: 10/09/16 REPORT STATUS : Draft TRANSCRIBED BY: CHARLIE DATE: 10/09/16 1. PENICILLIN. 2. CECLOR. 3. SULFA. 4. ERYTHROMYCIN. 5. TRIMETHOPRIM FROM BACTRIM. SOCIAL HISTORY: The patient is for 55 years. 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 Note, she does not smoke, drink, or use illicit drugs. She has two grown daughters, one grown son. Nine grandchildren, lives in a single-level home. FAMILY HISTORY: Mother was positive for hypertension. Father was positive for diabetes. She had a sister with a knee replacement and thyroid cancer. Two sisters with breast cancer. SURGICAL HISTORY: 1. Right hip arthroplasty on 08/27/2016 with revision on 09/12/2016. 2. Bilateral cataract with intraocular lens implant in 2016. 3. Tonsillectomy as a child. 4. Appendectomy at age 20. 5. ACL repair. 6. Ankle fracture which was noted several years ago. 7. Right Achilles tendon repair. 8. Previous biopsy for a left breast fibroadenoma in 2006. 9. Left arm fracture with plates. 10.[place] teeth extraction. 11.Tubal ligation. REVIEW OF SYSTEMS: Review of systems are negative other than what is in HPI. The patient is alert and oriented x3. She has no nausea and vomiting. No abdominal pain. No chest pain. No fever. No shortness of breath. Displays no agitation or confusion. The patient does state that she has tingling in her left lower extremity, that she is unable to feel in her perianal area, and she is incontinent of bowel and bladder and wears a diaper. She states that she was told she had multiple sacral fractures and family relates that physicians have noted a possible EMG on Thursday. PHYSICAL EXAMINATION: VITAL SIGNS: From today; blood pressure 126/69, respiratory rate 20, heart rate 82, and temperature 98.8. GENERAL: This is a 76-year-old female, resting in bed. No acute distress. She does complain of tingling and numbness to the left lower extremity, states that she is unable to feel in her perianal area that she is incontinent of bowel and bladder. NEURO: Her head is atraumatic, normocephalic. She is alert and oriented x3. Her mood is pleasant and appropriate. NECK: Supple. Trachea is midline. No JVD noted. No obvious thyromegaly or Consultation Report [address] [address] NAME: PRISCILLA CLARK : 39 STATUS : ADM IN [facility]#: [id number] AGE: 76 ADM/REG DATE : 10/09/16 MR#: [id number] REPORT SERV DATE: 10/10/16 DICTATED BY: SHANNAN MONAHAN DATE: 10/09/16 REPORT STATUS : Draft TRANSCRIBED BY: MODLizabeth DATE: 10/09/16 lymphadenopathy. EENT: Her sclerae are nonicteric. Her pupils are equal, reactive to light. Her nares are patent. Mucous membranes moist. Tongue is midline without deviation. Soft palate rises equally with phonation. CHEST: No pain with palpation. LUNGS: Clear to auscultation bilaterally. She has a normal respiratory effort. She has no increased work of breathing with conversation. CARDIOVASCULAR: S1, S2. Positive murmur. No rubs or gallops. She will be placed on telemetry with continuous O2 saturation monitoring. Heart rate presently is regular on auscultation with a rate of 82. ABDOMEN: Soft, nontender, with active bowel sounds. No palpable organomegaly. She is incontinent of bowel and bladder, and she does have a diaper in place. She has a right buttock excoriation noted. EXTREMITIES: No edema. Normal distal pulses. No calf tenderness. She has bilateral REGAN hose in place. She does have a small area of decubitus to her right heel which is covered, and she has an order to keep her heels off the bed linen and to have her feet elevated up. SKIN: Warm and dry. She has decubitus on her right heel that is noted. She has excoriation on her right buttock that is noted. She also has a dressing with Steri-Strips to her right hip from previous surgery. The edges are well approximated and healing. PSYCH: The patient is pleasant, cooperative. She has appropriate mood and affect. LABORATORY DATA: White blood cell 6.8, hemoglobin 10.2, hematocrit 31.7. Platelets 343. Additional labs are pending which will be a CMP, magnesium, phosphorus, and TSH. Previous EKG on 09/15/2016 displayed normal sinus rhythm with frequent PVCs with a rate of 85. The patient had an outpatient MR of the left spine without contrast on 10/09/2016 which displayed bilateral sacral fractures, left fracture displaced 9 mm second sacral segment displaced 15 mm, noted severe compression and stenosis of the spinal canal at the S2 level. ASSESSMENT AND PLAN: 1. Hypertension, aware. The patient has a history of paroxysmal supraventricular tachycardia and dysrhythmias. She will be continued on her Tenormin as well as her HCTZ. She will be placed on telemetry. 2. Chronic obstructive pulmonary disease, aware. The patient has a history of asthma and bronchitis. She does use inhalers as at home. We will have her Asmanex continued as well as add albuterol nebs p.r.n. and obtain continuous O2 saturation monitoring. She can have O2 to keep her sat 92% or greater. 3. Rheumatoid arthritis. Aware. She is on prednisone and methotrexate which is continued daily. 4. Hypothyroidism. Aware. She is on daily doses of Synthroid which will be continued, and we will also check a TSH. 5. Seasonal allergies. Aware. The patient is on Flonase as well as Claritin daily. 6. Gastroesophageal reflux disease. Aware. The patient will have her Pepcid continued daily. 7. Excoriation of the right buttock and also a right heel wound. Aware. The patient already has a Wound Care consult ordered per orthopedist. She will need her heels to Consultation Report [address] [place]. [address] NAME: PRISCILLA CLARK : 39 STATUS : ADM IN [facility]#: [id number] AGE: 76 ADM/REG DATE : 10/09/16 MR#: [id number] REPORT SERV DATE: 10/10/16 DICTATED BY: SHANNAN MONAHAN DATE: 10/09/16 REPORT STATUS : Draft TRANSCRIBED BY: CHARLIE DATE: 10/09/16 be kept off the bed. She will need to be turned q.2 hours to prevent further breakdown. Since she has sacral fractures and incontinence, it is difficult for her to position herself in bed. Dr. Chaves has seen the patient this evening and also has written for additional consults regarding her multiple sacral fractures and her S2 displacement with cord compression on the left. She has consults for GI for bowel incontinence and urinary incontinence, Neuro consult for sacral paresthesias as well as Wound Care consult for decubitus. The hospitalist group would like to thank you for this consultation. Please let us know if we can be of further assistance. CITLALI Shannan Monahan NP / [id number] CC: Phoebe Banks
--- NOTE | ~2016-10-09 | CN ---
Consultation Report [facility] [address] [place]. [address] NAME: PRISCILLA CLARK : 39 STATUS : ADM IN PAT#: [id number] AGE: 76 ADM/REG DATE : 10/09/16 MR#: [id number] REPORT SERV DATE: 10/10/16 DICTATED BY: STACI MATA DATE: 10/10/16 REPORT STATUS : Draft TRANSCRIBED BY: MODL DATE: 10/10/16 NEUROLOGY CONSULTATION DATE OF CONSULTATION: 10/10/2016 REASON FOR CONSULTATION: Sacral paresthesia, loss of bowel and bladder function. SURGEONS: Dr. John Chaves and Dr. Jesus Shaw. HISTORY OF PRESENT ILLNESS: The patient is a 76-year-old female, who underwent a right total hip arthroplasty on 08/27/2016. This is an uneventful surgery. She then went to rehab post surgery at [facility]. She was ultimately discharged from [facility] on 09/10/2016. The patient was at [facility] because she had significant degree of pain. She was transferred to [place], and had a CT scan there, but the family states that there were multiple pelvic fractures on the CT scan. An MRI was ordered immediately and there was a right pelvic fracture with protrusion on the previous surgery, so the patient was readmitted to [facility] on 09/16/2016, and she underwent a revision of the right total hip reconstruction. After that surgery, the patient reportedly had a total onset of saddle anesthesia in the pelvic region and mentioned that she had minimal sensation in the perivaginal and perirectal area. She also mentioned that she could not void on her own. She did not feel the urge to void. She had a catheter placed. She went to [facility] for rehab, and went through a bladder training. The catheter was taken out, but she had no control of her bladder. The patient mentions that she can only tell when she has to void by how large her bladder feels on palpation. She is unable to feel the urge to defecate or urinate. She is incontinent of urine and stool. She also mentions that her left leg feels "numb." When asked to describe this, she states that she feels pins and needles in her left lower extremity. She also mentions that she is not able to bear weight on her left leg. She is very weak. Consequently, she has been readmitted to [facility] for further evaluation and treatment. She did have an MRI yesterday at an outpatient facility, but was unable to clarify what area of her spine was imaged. PAST MEDICAL HISTORY: Osteoarthritis, rheumatoid arthritis, osteoporosis, hypertension, hypothyroidism, GERD, seasonal allergies, asthma, COPD, history of constipation, migraine headaches, paroxysmal supraventricular tachycardia, anemia, and nephrolithiasis. PAST SURGICAL HISTORY: Right total hip arthroplasty with revision, cataract extraction with bilateral lens implantation, tonsillectomy and adenoidectomy, appendectomy, ACL repair, ankle fracture with repair, right Achilles tendon repair, and left arm fracture with repair. HOME MEDICATIONS: Includes Tylenol p.r.n., Tenormin 50 mg q.a.m., Dulcolax 10 mg p.r.n., vitamin D 2000 units every morning, vitamin B12 2000 mcg every morning, Colace 100 mg twice a day, Pepcid 20 mg q.a.m., ferrous sulfate 325 mg b.i.d., Flonase nasal spray, folic acid 800 mcg q.a.m., HydroDIURIL 12.5 mg q.a.m., Synthroid 75 mcg daily, Claritin 10 mg daily, melatonin 5 mg at bedtime, Thera-Gesic one application every 8 hours, Trexall 20 mg weekly, Consultation Report [address] [place]. [address] NAME: PRISCILLA CLARK : 39 STATUS : ADM IN PAT#: [id number] AGE: 76 ADM/REG DATE : 10/09/16 MR#: [id number] REPORT SERV DATE: 10/10/16 DICTATED BY: STACI MATA DATE: 10/10/16 REPORT STATUS : Draft TRANSCRIBED BY: CHARLIE DATE: 10/10/16 Asmanex Twisthaler 2 puffs twice a day, multivitamin daily, Mycostatin oral solution 5 mL b.i.d., Zofran 4 mg q.4 hours p.r.n., MiraLAX powder 17 g daily, potassium chloride SR 10 mEq q.a.m., prednisone 5 mg q.a.m., Senokot 1 tablet p.r.n. constipation, Ultram 50 mg b.i.d., and Coumadin 3 mg daily. ALLERGIES: PENICILLIN, CECLOR, ERYTHROMYCIN, SULFA, AND BACTRIM. SOCIAL HISTORY: The patient is . She lives with her . She has four children. 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 Does not smoke, drink alcohol, or use illicits. FAMILY HISTORY: The patient's mother had hypertension. Her father had diabetes. REVIEW OF SYSTEMS: Please refer to the HPI. PHYSICAL EXAMINATION: GENERA: The patient is a 76-year-old female, who stands 5 feet 6 inches tall and she weighs 154 pounds. NEUROLOGIC: She is alert and oriented x4, pleasant, communicates appropriately. Appears to be in no distress. Speech is clear. Language is fluent. Pupils are 3 mm PERRLA. Cranial nerves 2 through 12 are intact. Vision via confrontation is full in both soliz. Finger-to nose, no ataxia. Cannot perform onsg-hn-naig. No pronator drift, asterixis, dysmetria, or tremor. Upper extremity strength is 4/5. Upper DTRs 1+ bilaterally. No reported sensory deficits in the upper extremities. Lower extremity strength is 3/5 on the right, and a 2/5 on the left. Patellar reflexes are 2+ bilaterally. Unable to elicit Achilles. Plantar reflexes are silent. The patient does not report diminished sensation in the lower extremities. Does not report diminished vibratory or temperature sensation in the lower extremities. She does report diminished sensation in the perineal area (saddle region), no anal wink. Also, reports diminished sensation in the lateral aspects of the hip bilaterally. No reported abnormal sensation in the torso. NECK: No carotid bruits, JVD, or thyromegaly. CHEST: Lung sounds are clear. No cough. CARDIAC: Regular rate and rhythm. LABORATORY DATA: CBC is normal. BMP is normal except potassium of 3.4. INR is 2.6. Chest x-ray, no acute changes. ASSESSMENT/PLAN: 1. Probable cauda equina syndrome. The patient will undergo an MRI of the T-spine and L- spine with and without gadolinium. She will be started on Decadron 4 mg IV q.6 hours. EMG and NCV will be considered at this point. 2. Right total hip arthroplasty on 08/27/2016 with revision on 10/17/2016. 3. Decubitus ulcers in the sacral region and also on the patient's heels. This is being managed per Wound Care. Thank you again for including us in consultation. We will follow with you. Consultation Report [facility] [address] [address] NAME: PRISCILLA CLARK : 39 STATUS : ADM IN PAT#: [id number] AGE: 76 ADM/REG DATE : 10/09/16 MR#: [id number] REPORT SERV DATE: 10/10/16 DICTATED BY: STACI MATA DATE: 10/10/16 REPORT STATUS : Draft TRANSCRIBED BY: CHARLIE DATE: 10/10/16 LEILANI/CHARLIE Staci Mata ACNP-BC / [id number] CC: Phoebe Banks Dr., D.O.
--- NOTE | ~2016-10-09 | PREOPHP ---
PreOp History and Physical [address] [place]. [address] NAME: PRISCILLA CLARK : 39 STATUS : ADM IN PAT#: [id number] AGE: 76 ADM/REG DATE : 10/09/16 MR#: [id number] REPORT SERV DATE: 10/09/16 DICTATED BY: JOHN ZAPATA DATE: 10/09/16 REPORT STATUS : Draft TRANSCRIBED BY: MODLizabeth DATE: 10/09/16 CHIEF COMPLAINT: Sacral and pelvic paresthesias, loss of bowel and bladder control. HISTORY OF PRESENT ILLNESS: A 76-year-old patient of Dr. Shaw, who underwent a right total hip arthroplasty on 08/27/2016. That appeared to be an uneventful surgery. The patient went through a usual postoperative recovery, which was somewhat prolonged despite pain. She ultimately was discharged to [facility] on 09/10/2016. The patient was at [facility] and because of rather significant degrees of pain, was ultimately transferred to [place] and either was admitted at [place] or at least had a CT scan at [place]. I do not know the date and I do not have any reports regarding the CT scan, I have not seen that myself. The family indicates that they were told that there were multiple pelvic fractures on the CT scan. Because of that CT report, ultimately Rosa Kunz, physician orthodontic assistant in our practice was asked to come and see the patient at [facility]. I do not have her report and I have not discussed that visit with her or the findings of the exam at that time. She did order an MRI to be done immediately, but because of the fractures in the pelvis, there was also notation of a right pelvic fracture with protrusio of the previous surgery. So, the patient had to be readmitted to [facility] by Dr. Shaw on 09/16/2016, underwent a revision of the right total hip with pelvic reconstruction. The MRI that had been ordered by Rosa Kunz could not be done because of the urgency to be admitted to the hospital and undergo the reconstructive surgery. According to the patient and her two daughters, she seemed to feel like she had onset of saddle anesthesia in the pelvic area with decreased sensation around the perivaginal area as well as the perirectal area as seen after the second surgery. She had a Pierre catheter in place and after the surgery, the patient ultimately had the catheter in place until she went to [facility] for rehab in [place], [place]. At [facility], she ultimately had the catheter for another couple of weeks and then during that time, went through bladder training, and ultimately had the catheter discontinued, but after the catheter was discontinued, she had no control of bladder. Even before the bladder training, removal of the catheter, and the confirmation of urinary incontinence, the patient had already experienced significant bowel incontinence. Again, it is very difficult to pinpoint exactly when, but the family feels it was soon after the second surgery. The MRI that had been ordered by Rosa Kunz was ultimately obtained and I was informed about that today by Ms. Kunz. After I looked at the MRI, I saw that there was a fracture of S2 and there was displacement, and the sacral canal was very diminished, and there was significant nerve impingement. I did not have all of the full history, but I felt that with a history of a sacral fracture, sacral canal impingement, and all of the medical issues that the patient has, there was no way we were going to be able to evaluate this appropriately in an outpatient or in a rehab facility. Thus, the patient has been admitted for a complete evaluation of the bowel and bladder incontinence and for a determination of possibility of potentially decompressing the sacral nerve roots. PAST MEDICAL HISTORY: The patient's past medical history is rather extensive. She has osteoarthritis, rheumatoid arthritis, hypertension, and hypothyroidism. PAST SURGICAL HISTORY: Has included the hip reconstructions as mentioned above and the others are listed in the history and physical from Dr. Shaw. CURRENT MEDICATIONS: A rather extensive list including Tenormin, Dulcolax, vitamin D, PreOp History and Physical [address] [address] NAME: PRISCILLA CLARK : 39 STATUS : ADM IN PAT#: [id number] AGE: 76 ADM/REG DATE : 10/09/16 MR#: [id number] REPORT SERV DATE: 10/09/16 DICTATED BY: JOHN ZAPATA DATE: 10/09/16 REPORT STATUS : Draft TRANSCRIBED BY: CHARLIE DATE: 10/09/16 vitamin B, Colace, Pepcid, iron, Flonase nasal spray, folic acid, HydroDIURIL, Synthroid, Claritin, melatonin, Theragran, multiple vitamins, Trexall, Asmanex, Mycostatin oral suspension, Zofran, potassium, prednisone 5 mg a day, Senokot, Ultram, Coumadin. ALLERGIES: AGAIN INCLUDE PENICILLIN, CEPHALOSPORINS, ERYTHROMYCIN, AND BACTRIM. SOCIAL HISTORY: She is . Does not use tobacco or alcohol. FAMILY HISTORY: Noncontributory. REVIEW OF SYSTEMS: She does have history of a previous left humeral fracture that was operated on by Dr. Kirkpatrick and Dr. Puente in [place], and it did take two surgeries to obtain a solid fixation and ultimately, the fracture healed. She now has quite good motion in her shoulder and elbow. She has multiple wounds that have occurred while in rehab including over the right sacrum, the right heel, and the left forearm. PHYSICAL EXAMINATION: GENERAL: She is alert, cooperative, well oriented. She is in the hospital bed. Her family is by her side including her and two daughters. HEENT: She is normocephalic. Pupils are equal and reactive to light. Extraocular muscles are intact. Oral exam is grossly normal. LUNGS: Clear to auscultation. HEART: Rate is regular and rhythmic. ABDOMEN: Soft with good bowel sounds. SPINE: Spine hinojosa, she has no pain with percussion over the spinous processes or the paraspinous muscles. She does have a diaper in place, but on exam, she has rather dense sensation in the perivaginal and perirectal area. RECTAL: Rectal exam was not performed. NEUROLOGIC: She seems to have normal sensation in the L1, 2, 3, 4, 5, and S1 regions. Reflexes are essentially absent. Toes are downgoing. No clonus is found. No evidence of myelopathy noted. As far as motor strength, particularly the quadriceps, hamstrings, tibialis anterior, and gastrocsoleus are 5/5. I think her left iliopsoas is 5/5. Her right is hard to corn grinder because of pain. Also, the hip abductors on the right are painful and cannot be tested with resistance. Left side abductor is 5/5. The adductors at the abductors are 5/5. Orthopedically, the right hip incision is healing. I did not do a logroll of her right hip. She moves her right knee and ankle quite well. She moves the left hip, knee, and ankle well and does not seem to have a lot of pain with movement. There is good pulse in all four extremities. Her skin is obviously abnormal due to the chronic steroid usage and is quite thin and friable. ASSESSMENT: 1. Multiple reconstructive surgeries including a right total hip arthroplasty, revision right hip arthroplasty with pelvis reconstruction. 2. Multiple pelvic fractures including an S2 displaced fracture and sacral canal stenosis PreOp History and Physical [address] [place]. [address] NAME: PRISCILLA CLARK : 38 STATUS : ADM IN PAT#: [id number] AGE: 76 ADM/REG DATE : 10/09/16 MR#: [id number] REPORT SERV DATE: 10/09/16 DICTATED BY: JOHN ZAPATA DATE: 10/09/16 REPORT STATUS : Draft TRANSCRIBED BY: CHARLIE DATE: 10/09/16 and compromise. 3. Probable four-week history of bowel and bladder incontinence. 4. Rheumatoid arthritis. 5. Osteoporosis, severe, due to steroid usage. 6. Osteoarthritis. 7. Hypertension. RECOMMENDATION: At this time, I think she should be switched from Coumadin to Lovenox and I will discuss with Dr. Rogel, the neurologist, and see if a sacral EMG has anything to offer. A Neurology consult will be obtained to see if they concur with the exam that I have found. There is also a GI consult and a urology consult for the bowel and bladder incontinence and possible long-term care. Further recommendations to follow. /CHARLIE John Zapata D.O. / [id number] CC: Indira Shaw M.D.
[~2016-10-09 18:08] MED LIST changes: +ASMANEX INH; +BISR PR; +C2 PO; +CENTRUM PO; +CONSTULOSE PO; +FERROUS SULF325 M1 PO; +GGDM5ML PO; +GLYCERIN SUPPOSITORY PR; +HYDROCHLOROT25 MG PO; +KAOPECTATE262 MG/15 PO; +LEVOTHYROXIN75 MCG PO; +MAALOX PO; +MIRALAX POWDER1 PKT PO; +MOMUD PO; +NORCO1 TA2 PO; +NYS500UDL PO; +PEP20 PO; +PR25R PR; +T PO; +TREXALL10 MG PO; +VITAMIN B-122500 MCG SL; +VITAMIN D2000 UNIT PO; +ZOFRAN ODT4 MG PO
[2016-10-09] MEDS ORDERED: SYN075 PO (19:29)
[2016-10-09] MEDS ORDERED: T PO (19:29)
[2016-10-09] MEDS ORDERED: TREXALL10 MG PO (19:29)
[2016-10-09] MEDS ORDERED: ATEN50 PO (19:30)
[2016-10-09] MEDS ORDERED: VITAMIN D2000 UNIT PO (19:30)
[2016-10-09] MEDS ORDERED: CYANO1000T PO (19:30)
[2016-10-09] MEDS ORDERED: MIRALAX POWDER1 PKT PO (19:30)
[2016-10-09] MEDS ORDERED: HCTZ12.5 PO (19:31)
[2016-10-09] MEDS ORDERED: MULTIVIT/MIN PO (19:31)
[2016-10-09] MEDS ORDERED: P5 PO (19:31)
[2016-10-09] MEDS ORDERED: PEP20 PO (19:31)
[2016-10-09] MEDS ORDERED: FOLIC ACID800 MCG PO (19:32)
[2016-10-09] MEDS ORDERED: FERROUS SULF325 M1 PO (19:32)
[2016-10-09] MEDS ORDERED: FLONASE NAS (19:32)
[2016-10-09] MEDS ORDERED: KDUR10 PO (19:32)
[2016-10-09] MEDS ORDERED: DSS PO (19:33)
[2016-10-09] MEDS ORDERED: ASMANEX INH (19:33)
[2016-10-09] MEDS ORDERED: COUMADIN3 MG PO (19:34)
[2016-10-09] MEDS ORDERED: NYS500UDL PO (19:34)
[2016-10-09] MEDS ORDERED: ULTRAM50 PO (19:34)
[2016-10-09] MEDS ORDERED: MELATONIN5 M1 PO (19:35)
[2016-10-09] MEDS ORDERED: CLARIT10 PO (19:35)
[2016-10-09] MEDS ORDERED: ZOFRAN ODT4 MG PO/SL (19:35)
[2016-10-09] MEDS ORDERED: SENTAB PO (19:35)
[2016-10-09] MEDS ORDERED: BISR PR (19:36)
[2016-10-09] MEDS ORDERED: BIST PO (19:36)
[2016-10-09] MEDS ORDERED: THERA-GESI1 TOP (19:37)
[2016-10-09] MEDS ORDERED: [UNRECOGNIZED DRUG - OTHER] TOP (19:42)
[2016-10-09 22:45] LABS: BASOPHILS 0.6 %; BASOPHILS ABSOLUTE 0.04 10/3/uL (0.0-0.16); EOSINOPHILS 4.9 %; EOSINOPHILS ABSOLUTE 0.33 10/3/uL (0.0-0.53); HEMATOCRIT 31.7 % (36.0-48.0); HEMOGLOBIN 10.2 g/dL (12.0-16.0); IMMATURE GRANULOCYTES 0.3 %; IMMATURE GRANULOCYTES ABSOLUTE 0.02 10/3/uL (0.0-0.11); LYMPHOCYTES 31.5 %; LYMPHOCYTES ABSOLUTE 2.13 10/3/uL (0.67-4.30); MEAN CORPUS HGB CONC 32.2 g/dL (32.0-36.0); MEAN CORPUSCULAR HEMOGLOB 29.1 pg (26.0-34.0); MEAN CORPUSCULAR VOLUME 90.3 fL (80-100); MEAN PLATELET VOLUME 8.4 fL (9.2-13.0); MONOCYTES 15.7 %; MONOCYTES ABSOLUTE 1.06 10/3/uL (0.21-1.20); NEUTROPHILS ABSOLUTE 3.18 10/3/uL (2.02-8.40); RBC DISTRIBUTION WIDTH 15.9 % (12.0-16.0); RED CELL COUNT 3.51 10/6/uL (4.0-5.6); WHITE BLOOD CELLS 6.8 10/3/uL (4.5-10.5)
[2016-10-09 22:46] LABS: MANUAL DIFF NO %; PLATELET COUNT 343 10/3/uL (150-400)
[2016-10-09 22:56] LABS: INTERNATIONAL NORMAL RATI 2.4 UNITS (-); PROTIME (NOT ORD) 26.3 SEC (12.0-14.5)
[2016-10-10 06:41] LABS: BASOPHILS 0.8 %; BASOPHILS ABSOLUTE 0.06 10/3/uL (0.0-0.16); EOSINOPHILS 5.1 %; EOSINOPHILS ABSOLUTE 0.37 10/3/uL (0.0-0.53); HEMATOCRIT 31.1 % (36.0-48.0); IMMATURE GRANULOCYTES 0.4 %; IMMATURE GRANULOCYTES ABSOLUTE 0.03 10/3/uL (0.0-0.11); INTERNATIONAL NORMAL RATI 2.6 UNITS (-); LYMPHOCYTES 32.2 %; LYMPHOCYTES ABSOLUTE 2.33 10/3/uL (0.67-4.30); MEAN CORPUS HGB CONC 32.2 g/dL (32.0-36.0); MEAN CORPUSCULAR HEMOGLOB 29.1 pg (26.0-34.0); MEAN CORPUSCULAR VOLUME 90.4 fL (80-100); MEAN PLATELET VOLUME 8.9 fL (9.2-13.0); MONOCYTES 15.6 %; MONOCYTES ABSOLUTE 1.13 10/3/uL (0.21-1.20); NEUTROPHILS 45.9 %; NEUTROPHILS ABSOLUTE 3.32 10/3/uL (2.02-8.40); PLATELET COUNT 373 10/3/uL (150-400); PROTIME (NOT ORD) 27.5 SEC (12.0-14.5); RED CELL COUNT 3.44 10/6/uL (4.0-5.6); WHITE BLOOD CELLS 7.2 10/3/uL (4.5-10.5)
[2016-10-10 06:57] LABS: A/G RATIO 0.7 (0.7-1.9); ALBUMIN 2.4 G/DL (3.5-5.0); CALCIUM, SERUM 8.8 MG/DL (8.5-10.4); CHLORIDE, SERUM 97 MMOL/L (96-112); CO2 (CARBON DIOXIDE) 31 MMOL/L (24-34); CREATININE 0.56 MG/DL (0.55-1.02); GFR AFRICAN AMERICAN 104 ML/MIN (>=60); GFR NON AFRICAN AMERICAN 90 ML/MIN (>=60); GLOBULIN 3.4 G/DL (2.5-4.1); GLUCOSE, SERUM 99 MG/DL (60-99); PHOSPHORUS, SERUM 3.3 MG/DL (2.5-4.5); POTASSIUM, SERUM 3.4 MMOL/L (3.5-5.3); SGOT(AST) 21 U/L (5-40); SGPT(ALT) 17 U/L (5-65); SODIUM, SERUM 138 MMOL/L (135-148); TOTAL BILIRUBIN 0.7 MG/DL (0-1.2); TOTAL PROTEIN 5.8 G/DL (6.0-8.5)
[2016-10-10 06:58] LABS: MANUAL DIFF NO %
[2016-10-10 07:05] LABS: ALKALINE PHOSPHATASE 156 U/L (45-117); BUN (BLOOD UREA NITROGEN) 14 MG/DL (6-23)
[2016-10-10 12:59] LABS: FOLATE 48.5 NG/ML (>5.2)
[2016-10-10 22:14] LABS: ASCORBIC ACID (UR NOT ORDER) NEG (NEG); BILIRUBIN, URINE NEGATIVE (NEG); KETONE, URINE NEGATIVE (NEG); LEUKOCYTE ESTERASE(NOT OR NEG (NEG); WBC (NOT ORDERED) (RFLEX) < 1 (0-5)
[2016-10-11 07:19] LABS: BUN (BLOOD UREA NITROGEN) 16 MG/DL (6-23); CALCIUM, SERUM 8.6 MG/DL (8.5-10.4); CHLORIDE, SERUM 99 MMOL/L (96-112); CO2 (CARBON DIOXIDE) 29 MMOL/L (24-34); CREATININE 0.49 MG/DL (0.55-1.02); GFR AFRICAN AMERICAN 109 ML/MIN (>=60); GFR NON AFRICAN AMERICAN 94 ML/MIN (>=60); GLUCOSE, SERUM 128 MG/DL (60-99); POTASSIUM, SERUM 3.8 MMOL/L (3.5-5.3); SODIUM, SERUM 138 MMOL/L (135-148)
[2016-10-15 10:53] LABS: ASCORBIC ACID (UR NOT ORDER) 40 (NEG); BILIRUBIN, URINE NEGATIVE (NEG); KETONE, URINE NEGATIVE (NEG); LEUKOCYTE ESTERASE(NOT OR LARGE (NEG)
[2016-10-15 10:55] LABS: WBC (NOT ORDERED) (RFLEX) > 182 (0-5)
== END 2016-10-15 15:56 | DRG 74 ==
LOC: 1SO 18:08
PROVIDERS: Hospitalist; Nurse Practitioner; Nurse Practitioner Family; Orthopaedic Surgery Orthopaedic Surgery of the Spine; Specialist
DX: G83.4 Cauda equina syndrome (principal); S32.10XA Unspecified fracture of sacrum, initial encounter for closed fracture; I47.1 Supraventricular tachycardia; L89.159 Pressure ulcer of sacral region, unspecified stage; J44.9 Chronic obstructive pulmonary disease, unspecified; L89.619 Pressure ulcer of right heel, unspecified stage; L89.629 Pressure ulcer of left heel, unspecified stage; M06.9 Rheumatoid arthritis, unspecified; E03.9 Hypothyroidism, unspecified; M19.90 Unspecified osteoarthritis, unspecified site; M81.0 Age-related osteoporosis without current pathological fracture; G25.81 Restless legs syndrome; I10 Essential (primary) hypertension; R32 Unspecified urinary incontinence; R15.9 Full incontinence of feces; J45.909 Unspecified asthma, uncomplicated; D64.9 Anemia, unspecified; T38.0X5A Adverse effect of glucocorticoids and synthetic analogues, initial encounter; Z79.52 Long term (current) use of systemic steroids; Z79.01 Long term (current) use of anticoagulants; Z79.899 Other long term (current) drug therapy; Z96.641 Presence of right artificial hip joint; Z87.01 Personal history of pneumonia (recurrent); Z87.442 Personal history of urinary calculi; Z88.0 Allergy status to penicillin; Z88.2 Allergy status to sulfonamides; Z88.1 Allergy status to other antibiotic agents
CPT/HCPCS: 71010; 71020; 72157; 72158; 72170; 72192; 80048; 80053; 80061; 81001; 82306; 82607; 82746; 83036; 83735; 84100; 84443; 85025; 85610; 85730; 87077; 87086; 87186; 93005; 94640; 97162-GP; 97166-GO; A9270-GY; A9577; G8978-CL-GP; G8979-CL-GP; G8980-CK-GP; J8610